=== PATIENT | female | born 1965 | race Caucasian/White ===

== ENCOUNTER 2020-03-21 20:52 | Emergency (ER) | payer OTHER, SELFPAY ==
[2020-03-21] VITALS (8 sets, daily range): BP systolic 107–124; BP diastolic 68–92; PULSE 87–94; RESP 20; TEMP 36.6; O2SAT 93–97
--- NOTE | 2020-03-21 21:06 | W.ED.GENAD ---
Discharge Plan Disposition Patient Disposition: HOME Condition: Stable Discharge Details Chief Complaint: Trauma Clinical Impression: Closed fracture of rib of right side Primary Care Provider: Yolie Merlos ED Provider: David Humphries Home Meds and New Rx's Prescriptions: New oxycodone 5 mg tablet 5 mg PO Q6H PRN (Reason: pain) Qty: 10 RF: 0 Continued albuterol sulfate [ProAir HFA] 90 mcg/actuation HFA aerosol inhaler INHALATION RF: 0 Discharge Instructions Instructions: Rib Fracture (ED) Additional Instructions: you can take 1000mg tylenol and 600mg ibuprofen every 6 hours for pain as needed use the incentive spirometer every hour while awake do not drink alcohol or drive any heavy machinery including cars if you take the oxycodone if you have fevers, severe worsening pain or feel more ill return to the emergency department Stand Alone Forms: Work Release Medical Decision Making 54 yo female comes in after she was riding her horse when the horse slipped and fell and the patient fell off and the horse fell on her right side. She was not wearing a helmet but denies loc. Has mild headache, no neck pain, does have abrasions on the face, eomi without pain. Has pain in right chest in mid axillary line over most ribs without palpable deformity and has tenderness without guarding in rlq and ruq. Ful rom of all extremities. No neck tenderness. Given mechanism and areas of pain will obtain ct head/c spine/facial bones and chest/abd/pelvis. imaging only shows rib fractures on the right, no ptx no tbi no spinal fractures, no intrabdominal pathology. She has no abdominal tenderness now on exam, does have lipase over 1000 but also etoh of 200 though is clinically sober. Suspect lipase elevation is due to the alcohol. Offered admission for pain control which she declined, will d/c with return precautions Differential Diagnosis Differential Diagnosis: rib fracture, liver laceration, abrasions Imaging Data Radiologic Study: Attestation: I personally reviewed and interpreted this imaging study as follows: Imaging: CT Scan Radiologist's impression: ct of head/facial/cspine/abdomen/pelvis/chest 1. Multiple right rib fractures. These involve the 5th through 8th ribs. There is mild displacement of the 6th, 7th, and 8th rib fractures. 2. Minor posterior right lung atelectatic features and minimal pleural effusion. 3. No pneumothorax. 4. Degenerative thoracic spine changes and levoscoliosis. Calcified subpleural small lung nodules bilaterally consistent with old granulomatous disease. Lab Data Lab results reviewed: Yes I reviewed the patient's lab results. HPI General Mode of arrival: ambulatory. Date/Time Provider Initiated Documentation: 03/21/20 20:55. Limitations to Documentation: no limitations. Information obtained by: patient. History of Present Illness 54 year old F presents to the emergency department with the chief complaint of right sided abdomen and chest pain s/p fall, described as moderate, and is localized to the chest. and it has been constant. No relieving factors improve symptom(s), No exacerbating factors reported . Patient did receive the following treatments prior to arrival, none Related Data Home Medications Medication Instructions Recorded Confirmed albuterol sulfate [ProAir HFA] INHALATION 03/21/20 oxycodone 5 mg PO Q6H PRN #10 tab 03/21/20 Previous Rx's Medication Instructions Recorded oxycodone 5 mg PO Q6H PRN #10 tab 03/21/20 Allergies Allergy/AdvReac Type Severity Reaction Status Date / Time codeine AdvReac jittery Unverified 03/21/20 21:05 General Stated Complaint: Trauma MALKA: 2 Review of Systems All systems reviewed & are unremarkable except as noted in HPI and below Constitutional Constitutional: Denies chills, Denies fever(s) and Denies weakness Cardiovascular Cardiovascular: Denies dyspnea Respiratory Respiratory: Denies cough and Denies dyspnea Gastrointestinal Gastrointestinal: Denies nausea and Denies vomiting Musculoskeletal Musculoskeletal: Denies joint swelling Neurologic Neurologic: Denies weakness Psychiatric Psychiatric: Denies depression [facility] Surgical History (Updated 03/21/20 @ 21:05 by Marifer Rodriguez) arm restrucutred. Arthroscopy ankle section x2 Previous back surgery (Acute) Social History Smoking/Tobacco Use Status: Current every day Tobacco Type: cigarettes Alcohol Intake: current Alcohol Intake frequency: 3 or more drinks per day Alcohol type: beer Drug use: Never Substance use type: does not use Do you feel safe at home: Yes Do you feel safe in your relationship?: Yes Exam Const General: other (appears in pain) Orientation: alert HENMT Head: no palpable skull fracture Ears: external ears normal General nose exam: external nose normal Mouth: moist mucous membranes Eyes General: appearance normal, both eyes and all related structures Neck Neck: normal visual inspection Resp Effort & Inspection: normal respiratory effort and able to speak in complete sentences Cardio Rate: regular rate Skin General skin exam: no rashes or lesions noted Neuro General: patient alert and patient oriented x3 Extrem General: normal to inspection Psych Mental Status: mental status grossly normal Course Vital Signs Vital signs: Vital Signs Temperature 36.6 C 03/21/20 21:01 Pulse 87 03/21/20 21:01 Respiratory Rate 20 03/21/20 21:01 Blood Pressure 124/92 H 03/21/20 21:01 Pulse Oximetry 97 03/21/20 21:01 Temperature 36.6 C 03/21/20 21:01 Pulse 87 03/21/20 21:01 Respiratory Rate 20 03/21/20 21:01 Blood Pressure 124/92 H 03/21/20 21:01 Pulse Oximetry 97 03/21/20 21:01 Pain Level 10 03/21/20 21:01
[2020-03-21] MEDS: fentaNYL 100 MCG/2 ML VIAL 50 MCG IVP ×2 (21:23→21:44)
[2020-03-21] MEDS: Normal Saline Flush 10 ML SYR IVP ×2 (21:23→21:44)
[2020-03-21 21:24] LABS: Abs Immature Grans 0.07 k/cumm (0.0-0.09); Absolute Basophil Count 0.06 k/cumm (0.0-0.2); Absolute Eosinophil Count 0.22 k/cumm (0.0-0.7); Absolute Monocyte Count 1.16 k/cumm (0.11-0.7); Basophils % 0.4; Eosinophils % 1.6; HGB 15.4 g/dL (12.0-15.5); Immature Grans % 0.5 %; Lymphocytes % 20.7; Mean Corp. HGB Concentration 34.2 g/dL (32.0-36.0); Mean Corpuscular Hemoglobin 31.9 pg (27.0-33.0); Mean Corpuscular Volume 93.2 fL (80-95); Mean Platelet Volume 9.6 fL (8.0-11.0); Monocytes % 8.3; Neutrophils % 68.5; Platelet Count 309 x1000/uL (130-400); RBC 4.83 m/cumm (4.00-5.20); RBC Distribution Width 12.9 % (11.7-14.6); White Blood Cell Count 14.02 k/cumm (4.4-10.8)
--- NOTE | 2020-03-21 21:24 | DI.CT_ITS ---
EXAM: CT HEAD CERV SPINE FACIAL WO CLINICAL HISTORY: trauma, fell off horse. TECHNIQUE: Imaging Protocol: Axial computed tomography images with coronal and sagittal reformatted images were created and reviewed COMPARISON: MRI CERVICAL THORACIC 20 from 04/12/2017 FINDINGS: CT Head: Ventricles and Extra axial spaces: Normal in size and morphology for the patient's age. Hemorrhage: None. Cerebral parenchyma: Normal. Midline shift: None. Brainstem/Cerebellum: Normal. Calvarium: Normal. Visualized Paranasal sinuses/Mastoids: Mild mucosal thickening in the ethmoid air cells and the sphen oid sinuses. Soft Tissues: Unremarkable. CT Face: Facial Bones: No definite fracture is noted in facial bones. Sinuses and Mastoids: Mild mucosal thickening in the ethmoid air cells and sphenoid sinuses. No flu id levels are present. Globes, extraocular muscles, optic nerves and retrobulbar fat: Normal. Upper aerodigestive tract: Normal. Mandible and bilateral temporomandibular joints: Normal. Soft tissues: Normal. CT Cervical Spine: Bones: No acute fracture or subluxation. Multilevel degenerative changes are seen in the cervical spi ne,particularly at C4-5 and C5-C6. Soft Tissues: Unremarkable. Lung Apices: Clear. IMPRESSION: 1. No acute intracranial process. 2. No acute fracture or subluxation in the cervical spine. 3. No acute facial fracture. RADIATION DOSE DELIVERED: Total DLP DATA REPOSITORY: All CT scans at this facility are submitted to the National Radiology Data Registry (NRDR) Dose Index Registry (DIR) with the [employer] ([employer]). RADIATION OPTIMIZATION: All CT scans at this facility use at least one of these dose optimization te chniques: automated exposure control; mA and/or kV adjustment per patient size (includes targeted exa ms where dose is matched to clinical indication); or iterative reconstruction.
[2020-03-21 21:34] LABS: ALT 38 U/L (14-59); AST 39 U/L (15-37); Albumin 4.1 g/dL (3.4-5.0); Alkaline Phosphatase 83 U/L (46-116); Anion Gap 8.6 mmol/L (3-11); BUN 9 mg/dL (7-18); Bilirubin, Direct 0.11 mg/dL (0.00-0.20); Bilirubin, Total 0.3 mg/dL (0.2-1.0); CO2 27.4 mmol/L (21.0-32.0); CREATININE 0.68 mg/dL (0.55-1.02); Calcium 8.5 mg/dL (8.5-10.1); Chloride 101 mmol/L (98-107); Glucose 97 mg/dL (74-106); Magnesium 2.1 mg/dL (1.8-2.4); Potassium 3.5 mmol/L (3.5-5.1); Sodium 137 mmol/L (136-145); Total Protein 7.8 g/dL (6.4-8.2)
[2020-03-21 21:36] LABS: Lipase 1574 U/L (73-393)
[2020-03-21 21:37] LABS: ETHANOL BLOOD 229.4 mg/dL (<3); INR 0.9 (0.9-1.1); PTT Activated 23.6 sec (21.0-31.4); Prothrombin Time 9.3 sec (9.3-11.0)
--- NOTE | 2020-03-21 21:40 | DI.CT_ITS ---
EXAM: CT CHEST/ABD/PEL W CLINICAL HISTORY: trauma, fell off horse TECHNIQUE: Imaging Protocol: Axial computed tomography images with coronal and sagittal reformatted images were created and reviewed CONTRAST MATERIAL: Intravenous: Omnipaque 350 Contrast volume:100 mL Oral: No COMPARISON: No exams were available for comparison FINDINGS: CHEST: Tracheobronchial tree: Patent where visualized. Mediastinum and Em: No dominant adenopathy or fluid collection. Pulmonary parenchyma: No consolidation or dominant measurable mass. Atelectasis in the lung bases. C alcified granulomas in the lungs. Pleura: Tiny right pleural effusion. No pneumothorax. Heart: The heart is not dilated. No coronary artery calcifications are seen. No pericardial effusion. Aorta: Thoracic aorta non-dilated. Minimal atherosclerosis. Lymph nodes: Within normal limits. Bones:Nondisplaced fracture of the posterior lateral right 5th rib. Minimally displaced fracture of the posterior lateral aspect of the right 6th, 7th and 8th ribs. ABDOMEN: Liver: Fatty infiltration. Cyst in the right lobe of the liver. Portal, Superior Mesenteric, and Splenic Veins: Unremarkable. Gallbladder and Biliary Tract: No radiodense calculus or dilation. Pancreas: Normal density, no abnormal calcifications or inflammatory process. Spleen: Normal. Adrenals: No masses seen. Kidneys: Normal size, contour and axis. No radiodense stones or obstructive uropathy. No masses seen. Abdominal Aorta: Abdominal portion non-dilated. Atherosclerosis. Bowel: No obstruction or bowel wall thickening. No evidence of acute appendicitis. Peritoneal Cavity: No ascites, collection or mesenteric inflammatory response. Lymph Nodes: Within normal limits. Bones: Degenerative changes. Soft Tissues: Unremarkable. PELVIS: Bladder: Symmetric distention, no gross wall thickening. Reproductive Organs: Unremarkable as visualized. Lymph Nodes: Within normal limits. Bones: Degenerative changes. IMPRESSION: 1. Fractures involving the right 5th through 8th ribs. 2. Atelectasis in the right lung with a small right pleural effusion. No pneumothorax. 3. No abdominal or pelvic organ injury. RADIATION DOSE DELIVERED: Total DLP DATA REPOSITORY: All CT scans at this facility are submitted to the National Radiology Data Registry (NRDR) Dose Index Registry (DIR) with the [employer] ([employer]). RADIATION OPTIMIZATION: All CT scans at this facility use at least one of these dose optimization te chniques: automated exposure control; mA and/or kV adjustment per patient size (includes targeted exa ms where dose is matched to clinical indication); or iterative reconstruction.
[2020-03-21] MEDS: Normal Saline - Diluent 50 ML VIAL IV (21:43)
[2020-03-21] MEDS: Omnipaque 350 MG/ML 100 ML BTL IJ (21:43)
--- NOTE | 2020-03-21 22:06 | DI.VRAD_ITS ---
PROCEDURE INFORMATION: Exam: CT Chest With Contrast Exam date and time: 03/21/2020 9:31 PM Age: 54 years old Clinical indication: Injury or trauma; Fall; Blunt; Generalized; Injury date: 03/21/20; Injury details: Fell from horse TECHNIQUE: Imaging protocol: Computed tomography of the chest with intravenous contrast. Radiation optimization: All CT scans at this facility use at least one of these dose optimization techniques: automated exposure control; mA and/or kV adjustment per patient size (includes targeted exams where dose is matched to clinical indication); or iterative reconstruction. Contrast material: [id number]; Contrast volume: 100 ml; Contrast route: IV LAC 18G; COMPARISON: No relevant prior studies available. FINDINGS: Lungs: Posterior right lung mild atelectatic changes. Multiple subpleural calcified nodules in the right lung involving upper and lower lung short. These are most prominent in the upper lung field. The largest nodule is seen on series 8, image 269. These are consistent with old granulomatous nodules. A few small subpleural calcified nodules are also seen in the left upper lobe. Pleural space: Minimal right pleural fluid. No pneumothorax. Heart: Unremarkable. No cardiomegaly. No pericardial effusion. Aorta: Unremarkable. No aortic aneurysm. Lymph nodes: Unremarkable. No enlarged lymph nodes. Bones/joints: Nondisplaced posterolateral right 5th rib fracture. Mildly displaced posterior right 6th, 7th and 8th rib fractures. Soft tissues: Unremarkable. IMPRESSION: 1. Multiple right rib fractures. These involve the 5th through 8th ribs. There is mild displacement of the 6th, 7th, and 8th rib fractures. 2. Minor posterior right lung atelectatic features and minimal pleural effusion. 3. No pneumothorax. 4. Degenerative thoracic spine changes and levoscoliosis. Calcified subpleural small lung nodules bilaterally consistent with old granulomatous disease. PROCEDURE INFORMATION: Exam: CT Abdomen And Pelvis With Contrast Exam date and time: 03/21/2020 9:31 PM Age: 54 years old Clinical indication: Injury or trauma; Fall; Blunt; Generalized; Injury date: 03/21/20; Injury details: Fell from horse TECHNIQUE: Imaging protocol: Computed tomography of the abdomen and pelvis with intravenous contrast. Radiation optimization: All CT scans at this facility use at least one of these dose optimization techniques: automated exposure control; mA and/or kV adjustment per patient size (includes targeted exams where dose is matched to clinical indication); or iterative reconstruction. Contrast material: [id number]; Contrast volume: 100 ml; Contrast route: IV LAC 18G; COMPARISON: No relevant prior studies available. FINDINGS: Liver: Mild fatty liver infiltration. 10 mm inferior right hepatic cyst. Gallbladder and bile ducts: Normal. No calcified stones. No ductal dilation. Pancreas: Normal. No ductal dilation. Spleen: Normal. No splenomegaly. Adrenals: Normal. No mass. Kidneys and ureters: Normal. No hydronephrosis. Stomach and bowel: Unremarkable. No obstruction. No mucosal thickening. Appendix: No evidence of appendicitis. Intraperitoneal space: No free fluid in the abdomen or pelvis. Vasculature: Unremarkable. No abdominal aortic aneurysm. Lymph nodes: Unremarkable. No enlarged lymph nodes. Bladder: Unremarkable as visualized. Reproductive: Unremarkable as visualized. Bones/joints: Lumbar spine degenerative disease. No fracture. No evidence of pelvic fracture. Soft tissues: Unremarkable. IMPRESSION: 1. No visceral injury evident. 2. Lumbar spine degenerative disease and levoscoliosis. 3. Fatty liver changes and minor right hepatic cyst. Dictated and Authenticated by: Manan Singh MD. Ordering:FLY Hernandez MD
--- NOTE | 2020-03-21 22:13 | DI.VRAD_ITS ---
PROCEDURE INFORMATION: Exam: CT Head Without Contrast Exam date and time: 03/21/2020 9:03 PM Age: 54 years old Clinical indication: Injury or trauma; Fall; Initial encounter; Blunt trauma (contusions or hematomas); Injury date: 03/21/20; Injury details: Fell from horse TECHNIQUE: Imaging protocol: Computed tomography of the head without contrast. Radiation optimization: All CT scans at this facility use at least one of these dose optimization techniques: automated exposure control; mA and/or kV adjustment per patient size (includes targeted exams where dose is matched to clinical indication); or iterative reconstruction. COMPARISON: MRI CERVICAL THORACIC 04/12/2017 2:38 PM FINDINGS: Brain: Normal. No hemorrhage. Unremarkable white matter. No mass effect. Ventricles: Normal. No ventriculomegaly. Bones/joints: Unremarkable. No acute fracture. Sinuses: Mild chronic sinus disease of the frontal and ethmoid sinuses. Mastoid air cells: Visualized mastoid air cells are well aerated. Soft tissues: Unremarkable. IMPRESSION: 1. No acute intracranial abnormality. 2. No intracranial hemorrhage. 3. No skull fracture. 4. Minor frontal and ethmoid chronic sinus disease PROCEDURE INFORMATION: Exam: CT Maxillofacial Without Contrast Exam date and time: 03/21/2020 9:03 PM Age: 54 years old Clinical indication: Injury or trauma; Fall; Initial encounter; Blunt trauma (contusions or hematomas); Injury date: 03/21/20; Injury details: Fell from horse TECHNIQUE: Imaging protocol: Computed tomography images of the face without contrast. Radiation optimization: All CT scans at this facility use at least one of these dose optimization techniques: automated exposure control; mA and/or kV adjustment per patient size (includes targeted exams where dose is matched to clinical indication); or iterative reconstruction. COMPARISON: MRI CERVICAL THORACIC 04/12/2017 2:38 PM FINDINGS: Orbits: Orbits are normal. Globes are unremarkable. Bones/joints: No acute fracture. Sinuses: Mild chronic frontal and ethmoid sinus disease. Soft tissues: Unremarkable. IMPRESSION: 1. No acute findings. 2. No facial fracture. PROCEDURE INFORMATION: Exam: CT Cervical Spine Without Contrast Exam date and time: 03/21/2020 9:03 PM Age: 54 years old Clinical indication: Injury or trauma; Fall; Initial encounter; Blunt trauma (contusions or hematomas); Injury date: 03/21/20; Injury details: Fell from horse TECHNIQUE: Imaging protocol: Computed tomography images of the cervical spine without contrast. Radiation optimization: All CT scans at this facility use at least one of these dose optimization techniques: automated exposure control; mA and/or kV adjustment per patient size (includes targeted exams where dose is matched to clinical indication); or iterative reconstruction. COMPARISON: MRI CERVICAL THORACIC 20 04/12/2017 2:38 PM FINDINGS: Vertebrae: No acute fracture. Normal alignment. Discs/Spinal canal/Neural foramina: Posterior broad-based central disc bulge measuring 3 mm at C4-C5. Degenerative disc space narrowing at C5-C6. Posterior osteophytes at C5-C6 projecting approximately 3 mm into the spinal canal.. No significant spinal canal stenosis. Moderate bilateral foraminal stenosis at C5-C6 from osteophytic encroachment. Soft tissues: Unremarkable. Lungs: Lung apices are normal. IMPRESSION: 1. Degenerative cervical spine disease. Severe degenerative disc disease at C5-C6. 2. Facet and uncovertebral joint degenerative disease at multiple levels. 3. No acute fracture or dislocation. Dictated and Authenticated by: Manan Singh MD. Ordering:FLY Hernandez MD
[2020-03-21] MEDS: oxyCODONE 5 MG TAB PO (22:23)
--- NOTE | 2020-03-21 22:32 | NUR.NOTE ---
Nursing Note: faxed referal to primary to follow up 03/21/20
== END 2020-03-21 22:50 | disposition home or self-care (01) ==
LOC: ER 22:35
PROVIDERS: Emergency Provider Emergency Medicine; PCP Nurse Practitioner
DX: S22.41XA Multiple fractures of ribs, right side, initial encounter for closed fracture (principal); V80.010A Animal-rider injured by fall from or being thrown from horse in noncollision accident, initial encounter; W55.19XA Other contact with horse, initial encounter
CPT/HCPCS: 74177; 80053; 80076; 83690; 86850; 86900; 86901; 96374; 96376; 99285; 70450; 70486; 71260; 72125; 80320; 83735; 85025; 85610; 85730; 99284; J3010; J3490

== ENCOUNTER 2020-05-07 01:02 | Outpatient (CLI) | payer OTHER, SELFPAY ==
--- NOTE | 2020-05-07 | DI.RAD_ITS ---
EXAM: XR RIBS RT W PA LAT CHEST INDICATION: RIB DISORDER,M89.9, FELL OFF HORSE, PAIN, ? FX. COMPARISON: No exams were available for comparison TECHNIQUE: 2D digital imaging was performed. FINDINGS: Nondisplaced fractures are seen at the posterior aspects of the right 6th and 7th ribs. There is a m ildly displaced fracture of the posterior aspect of the right 8th rib. The heart and pulmonary vasculature are within normal limits. The lungs are clear. No effusion or p neumothorax is identified. IMPRESSION: Fractures involving the posterior aspects of the right 6th, 7th and 8th ribs. DATA REPOSITORY: RADIATION DOSE DELIVERED:
== END 2020-05-07 01:22 ==
PROVIDERS: PCP Nurse Practitioner; Visit Provider Nurse Practitioner Family
DX: R07.81 Pleurodynia (principal); S22.41XA Multiple fractures of ribs, right side, initial encounter for closed fracture; V80.010A Animal-rider injured by fall from or being thrown from horse in noncollision accident, initial encounter
CPT/HCPCS: 71046; 71100

== ENCOUNTER 2021-04-26 19:27 | Emergency (ER) | payer OTHER, SELFPAY ==
[2021-04-26 19:35] VITALS: BP 135/108; PULSE 88; RESP 16; TEMP 36.5; O2SAT 97
[2021-04-26 20:17] VITALS: BP 150/88
--- NOTE | 2021-04-26 22:33 | ED.GENADUL_ITS ---
Discharge Plan Disposition Patient Disposition: HOME Condition: Good Discharge Details Clinical Impression: Abscess of right leg Primary Care Provider: Yolie Merlos ED Provider: Brenda Schwarz Home Meds and New Rx's Prescriptions: No Action albuterol sulfate [ProAir HFA] 90 mcg/actuation HFA aerosol inhaler 2 puff INHALATION PRN PRNRF: 0 Discharge Instructions Instructions: Abscess (ED) Additional Instructions: You have declined antibiotic, which we have recommended I recommend you have recheck in 48 hours Work removal in 48 hours Warm compresses several times daily Blood pressure recheck by your primary care physician Return earlier should you have new or worsening complaints including spreading redness, fever, worsening pain Medical Decision Making Wick removal in 2 days Declines antibiotics, I discussed that I recommended antibiotics and patient has refused, she is alert, oriented, of decisional capacity She is discharged home in stable condition with stable vitals Recheck in 24 to 48 hours recommended Differential Diagnosis Differential Diagnosis: Cellulitis, lymphangitis, abscess, dermatitis Medical Records Medical records reviewed: Yes I reviewed the patient's medical records. HPI General Mode of arrival: ambulatory . Date/Time Provider Initiated Documentation: 04/26/21 19:32 . Limitations to Documentation: no limitations . Information obtained by: patient . HPI Narrative: This 55-year-old female is otherwise healthy presents with abscess to right thigh. She states she acquired the abscess after shaving. She denies any history of IV drug abuse, fever, chills, or any additional complaints time. She states lesions have become more red color and painful which is why she presents this evening. Denies prior history of similar symptoms in the past. Related Data Home Medications Medication Instructions Recorded Confirmed albuterol sulfate [ProAir HFA] 2 puff INHALATION PRN PRN 03/21/20 04/26/21 Allergies Allergy/AdvReac Type Severity Reaction Status Date / Time codeine AdvReac jittery Unverified 04/26/21 19:41 General Stated Complaint: RashLesion MALKA: 4 Review of Systems Narrative: Review of systems obtained x7 aside from where indicated in HPI REPLACED BY [facility] Medical History (Updated 04/26/21 @ 20:04 by SADIE Valdez) Heavy alcohol consumption Leg weakness, bilateral Lumbar back pain Paresthesia Surgical History (Updated 03/21/20 @ 21:05 by Marifer Rodriguez) arm restrucutred. Arthroscopy ankle section x2 Previous back surgery Social History Smoking/Tobacco Use Status: Current every day Tobacco Type: cigarettes Smoking risk assessment performed?: Yes Alcohol Intake: current Alcohol Intake frequency: 3 or more drinks per day Alcohol type: beer Drug use: Never Substance use type: does not use Do you feel safe at home: Yes Do you feel safe in your relationship?: Yes Exam Const Orientation: alert and oriented x3 Extrem Other: quarter sized lesion to right medial thigh, no surrounding cellulitis, no lymphangitis, no crepitus Course Vital Signs Vital signs: Vital Signs Temperature 36.5 C 04/26/21 19:35 Pulse 88 04/26/21 19:35 Respiratory Rate 16 04/26/21 19:35 Blood Pressure 135/108 H 04/26/21 19:35 Pulse Oximetry 97 04/26/21 19:35 Temperature 36.5 C 04/26/21 19:35 Temperature Source Skin 04/26/21 19:35 Pulse 88 04/26/21 19:35 Respiratory Rate 16 04/26/21 19:35 Respiratory Effort Non-Labored 04/26/21 19:44 Blood Pressure 150/88 H 04/26/21 20:17 Blood Pressure Position Sitting 04/26/21 19:35 Pulse Oximetry 97 04/26/21 19:35 Oxygen Delivery Method Room Air 04/26/21 19:35 Oxygen Flow Rate 0 04/26/21 19:35 Pain Level 0 04/26/21 20:17 Procedures Abscess I/D Site: Lower Extremity Side (if applicable): Right Local Anesthetic: Lidocaine 1% Technique: Incised with #11 Blade Irrigation: Yes Packing used?: Plain Complications: Pain
== END 2021-04-26 20:40 | disposition home or self-care (01) ==
PROVIDERS: Emergency Provider Physician Assistant; PCP Nurse Practitioner
DX: L02.415 Cutaneous abscess of right lower limb (principal)
CPT/HCPCS: 10061

== ENCOUNTER 2021-09-24 01:05 | Outpatient (CLI) | payer OTHER, SELFPAY ==
--- NOTE | 2021-09-24 09:30 | DI.MRI_ITS ---
Exam(s) MR UPPER JOINT RT WO EXAM: MR UPPER JOINT RT WO CLINICAL HISTORY: Work injury,?LABRAL TEAR,?INTERNAL DERANGEMENT,RT SHOULDER PAIN,M25.511 TECHNIQUE: Multiplanar multisequence MRI of the shoulder was performed. COMPARISON: CR XR RIBS RT W PA LAT CHEST from 05/07/2020 CR XR RIBS RT W PA LAT CHEST from 05/07/2020 FINDINGS: MARROW:There is no evidence of fracture, Hill-Sachs deformity, nor ominous osseous lesions. No eviden ce of bony Bankart lesion. ROTATOR CUFF MECHANISM: AC JOINT/ACROMIUM: Minimal degenerative changes. No osteophytes. Mild impingement undersurface of t he acromion is flat. No impingement hook at this level. No calcification evident in the coracoacrom ial ligament.. There is no evidence of os acromiale. Supraspinatus: Intact. No evidence of tear nor muscle atrophy. Infraspinatus: Intact. No evidence of tear nor muscle atrophy. There is a degenerative subarticular cyst in the posterolateral humeral head which is subjacent to the infraspinatus insertion. This cys t measures 5 x 4 millimeter. Teres Minor: Intact. No evidence of tear nor muscle atrophy. Subscapularis/anterior cuff: Intact. No abnormal signal at the level of the multipennate insertional fibers. No significant tear nor atrophy. BICEPS TENDON: Not displaced from its normal position in the intertubercular groove but there is a sm all amount of fluid in the biceps tendon sheath. LABRUM: There is increased signal in the superior labrum at and slightly posterior to the insertional aspect the biceps. Small degenerative subarticular cysts seen in the superior osseous glenoid at th is level. The posterior labrum is intact. Anterior labrum appears intact. Inferior labrum appears intact. There is no evidence of paralabral cyst. Inferior glenohumeral ligament is intact. No evidence of osseous Bankart lesion. GLENOHUMERAL JOINT: There is a small amount of increased fluid in the glenohumeral joint. There is n o loose intra-articular body. Minimal degenerative changes. No osteophytes evident. QUADRILATERAL SPACE: No evidence of mass in the region of the axillary nerve and dorsal circumflex hu meral vessels. Visualized triceps muscle at this level appears unremarkable. IMPRESSION: 1. No evidence of significant rotator cuff tear. No evidence of rotator cuff atrophy. 2. There is some increased signal in the superior labrum at and slightly posterior to the biceps mireya chment level. Possible small SLAP injury but cannot exclude the possibly that this is just related t o the normal sublabral recess. 3. Mild intraosseous signal in the superior osseous glenoid and the inferior osseous glenoid. There does not appear to be a prominent bony Bankart lesion. 4. Small amount of increased fluid in the glenohumeral joint and in the biceps tendon sheath within the intertubercular groove. There is no evidence of biceps tendon tear. There is no loose intra-art icular body evident. DATA REPOSITORY:
== END 2021-09-24 01:25 ==
PROVIDERS: PCP Nurse Practitioner; Visit Provider Nurse Practitioner Family
DX: M25.511 Pain in right shoulder (principal)
CPT/HCPCS: 73221

== ENCOUNTER 2021-11-04 11:40 | Outpatient (CLI) | payer OTHER, SELFPAY ==
--- NOTE | 2021-11-04 11:30 | DI.RAD_ITS ---
Exam(s) XR SHOULDER RT COMPLETE 2+V EXAM: XR SHOULDER RT COMPLETE 2+V CLINICAL HISTORY: right shoulder pain. TECHNIQUE: 2D digital imaging was performed of the right shoulder. Two images were obtained. Axill cassia and AP views were obtained. COMPARISON: No exams were available for comparison FINDINGS: BONES: No acute fracture is present. No bony destructive lesion is seen. JOINTS: No dislocation present. SOFT TISSUE: Normal. IMPRESSION: Unremarkable radiographs of the right shoulder. DATA REPOSITORY: RADIATION DOSE DELIVERED:
== END 2021-11-04 11:41 | disposition home or self-care (01) ==
LOC: DIORS 11:40
PROVIDERS: PCP Nurse Practitioner; Referring Provider Nurse Practitioner; Visit Provider Student in an Organized Health Care Education/Training Program
DX: M25.511 Pain in right shoulder (principal)
CPT/HCPCS: 73030

== ENCOUNTER 2022-05-04 01:18 | Outpatient (CLI) | payer OTHER, SELFPAY ==
[2022-05-04 14:30] LABS: Source Nasal/Nares
[2022-05-04 22:21] LABS: COVID-19 PCR Negative (Negative)
== END 2022-05-04 01:19 | disposition home or self-care (01) ==
LOC: LBO 01:18
PROVIDERS: PCP Nurse Practitioner; Visit Provider Student in an Organized Health Care Education/Training Program
DX: Z20.822 Contact with and (suspected) exposure to COVID-19 (principal); Z01.818 Encounter for other preprocedural examination
CPT/HCPCS: 87635

== ENCOUNTER 2022-05-06 10:56 | Day surgery (SDC) | payer OTHER, SELFPAY ==
[2022-05-06] VITALS (8 sets, daily range): BP systolic 100–161; BP diastolic 61–101; PULSE 62–87; RESP 13–20; TEMP 36.2–37; O2SAT 93–98; BMI 28.5
--- NOTE | 2022-05-06 11:02 | ANES.PREOP_ITS ---
General Info Date of Service Date Performed: 05/06/22 Height: 5 ft 1 in Weight: 68.492 kg Body Mass Index (BMI): 28.5 Surgical Procedure: Operation Date: 05/06/22 13:10 Proposed Procedure Side Surgeon p Shoulder Arthroscopy w/Extensive Debridement,Biceps Tenodesis, Subacromial Decompression Right Truong Hewitt MD Meds Allergies and Home Medications Allergies Allergy/AdvReac Type Severity Reaction Status Date / Time codeine AdvReac jittery Verified 05/06/22 11:19 Home Medication Medication Instructions Recorded aspirin 81 mg tablet,delayed 81 mg PO DAILY Prevent blood clot 05/06/22 release 14 days #14 tabs naproxen 250 mg tablet 250 - 500 mg PO BID PRN #20 tabs 05/06/22 oxycodone 5 mg tablet 5 - 10 mg PO Q4H PRN moderate to 05/06/22 severe pain #12 tabs Current Visit Medications: Current Medications Generic Name Dose Route Start Last Admin Trade Name Freq PRN Reason Stop Dose Admin Ringer's Solution 1,000 mls @ 100 mls/hr 05/06/22 06:00 IV 06/04/22 23:59 INFUSION ARIANNA Cefazolin Sodium/Dextrose 2 gm in 50 mls @ 100 mls/hr 05/06/22 06:00 Ancef Duplex IVPB PREOP ARIANNA IV Miscellaneous Supplies 1 each 05/06/22 06:00 Iv Access IV 06/04/22 23:59 DIRECTED ARIANNA Sodium Chloride 0 ml 05/06/22 06:00 Normal Saline Flush 10 Ml Syr IV 06/04/22 23:59 PRN PRN Sodium Chloride 0 ml 05/06/22 06:00 Normal Saline 10 Ml Vial IJ 06/04/22 23:59 DIRECTED PRN Sterile Water 0 ml 05/06/22 06:00 Water,Injection,Sterile 10 Ml Vial IJ 06/04/22 23:59 DIRECTED PRN PFSH Active Problems Active Problems: Problem Status Onset Code SLAP lesion of right shoulder 08/06/21 S43.431A Bursitis of right shoulder M75.51 Medical History Medical History Abscess of right leg Leg weakness, bilateral Lumbar back pain Medial epicondylitis, left elbow Paresthesia Surgical History Surgical History (Updated 06/09/22 @ 11:12 by Ankita Thomas) arm restrucutred. Per pt. 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 (L). Is able to have IV's and BP on on that arm. IV starts are fine to be started on left arm, more distally from elbow. Arthroscopy ankle section x2 Previous back surgery Per pt. 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 Tobacco Smoking/Tobacco Use Status: Current-Occasional Tobacco Type: cigarettes Alcohol Alcohol Intake: current Alcohol intake frequency: 3 or more drinks per day Alc ohol type: beer Substance Use Substance use: Never Substance use type: does not use Vital Signs and Lab Results Lab Results Blood Type / Crossmatch: No Data to Display Complete Blood Count: No Data to Display Complete Metabolic Panel: No Data to Display Liver Function Panel: No Data to Display Coagulation Panel: No Data to Display Cardiac Panel: No Data to Display Arterial Blood Gas: No Data to Display Venous Blood Gas: No Data to Display Pancreas Panel: No Data to Display Thyroid Panel: No Data to Display Infectious Disease: Coronavirus (COVID-19)(PCR) Negative (Negative) 05/04/22 09:00 Coronavirus 2019 Source Nasal/Nares 05/04/22 09:00 Blood Cultures: No Data to Display Toxicology Panel: No Data to Display Anesthesia Assessment and Plan Anesthesia History Personal History: No History of Anesthesia Complications Family History: No Family History of Anesthesia Complications Exercise Tolerance Exercise Tolerance: Metabolic Equivalents>4 Pertinent Negatives Pertinent Negatives: No Symptoms of GERD, No Major Cardiovascular Symptoms or Complaints, No Major Pulmonary Symptoms or Complaints and No History of CVA/TIA Cardiac & Pulmonary Exam Cardiac Exam: Normal S1/S2 Heart Sounds Pulmonary Exam: Clear Bilateral Breath Sounds Implantable Cardiac Device Does patient have a Pacemaker or an ICD?: No Airway Exam Known Difficult Airway: No Mallampati Class: 1 Mouth Opening: Normal (> 3cm) Thyromental Distance: Greater than 3 cm Neck Range of Motion: Full ROM Neck Circumference: Normal Teeth Condition: Removable Dentures/Plates Upper (3 natural teeth upper, most missing on lower. None loose or chipped per patient. ) ASA Classification ASA Score: ASA 2 Emergency Case?: No NPO Status NPO Status: NPO Clears >2 hours, Solids >8 hours Anesthesia Plan Resuscitation Status: Full Code Anesthesia Technique: General Anesthesia Airway Planned: Endotracheal Tube Pain Management: Surgeon and patient request nerve block Monitors Used: Standard Monitors
[2022-05-06] MEDS: Lactated Ringers 1,000 ML 100 ML IV (11:51)
[2022-05-06] MEDS: ceFAZolin 2 GM/50 ML BAG IVPB (12:24)
--- NOTE | 2022-05-06 13:04 | W.ANESNERVE ---
Nerve Block Single Injection Procedure Date and Time Date Performed: 05/06/22 Procedure Start: 12:05 Location Where Procedure Performed Procedure Location: Day Surgery Unit Reason Performed: Postoperative Analgesia Requesting Provider: Truong Hewitt Timeout Performed Timeout Performed: Yes Monitoring Used ECG, Blood Pressure and SpO2 Sterility Sterility: Hand Hygiene, Surgical Cap, Surgical Mask, Sterile Gloves and Chlorhexidine Sedation Given During Procedure Sedation Given (Indicate Dose Given): Versed IV Dose:: 2 mg Patient Mental Status Patient Mental Status: Sedate with meaningful communication Nerve Block 1st Nerve Block: Laterality: Right Block Type: Interscalene Needle / Catheter Used: 100mm SonoPlex II Local Anesthetic Bolus (Indicate Dose Given): Lidocaine used for local infiltration of skin, Injected in 3-5ml increments after negative blood aspiration and Bupivacaine 0.5% Dose:: 20 ml Additives (Indicate Dose Given): Precedex Dose:: 70 mcg Ultrasound: Sterile probe cover and gel used Ultrasound Image Saved?: Yes Nerve Stimulator: Not Used Paresthesia: Right Paresthesia Duration: Transient (Repositioned needle and paresthesia resolved. ) Post Procedure Pain score (0-10): 0 Procedure Tolerated: No Complications Procedure Outcome: Successful Performed By: Khanh Bailey
[2022-05-06] MEDS: EPINEPHrine 30 MG/30 ML VIAL (13:13)
--- NOTE | 2022-05-06 13:40 | W.PM.DSUDISC ---
Discharge Plan Disposition Patient Disposition: HOME Condition: Stable Discharge Details Reason For Visit: Right shoulder surgery Attending Provider: Truong Hewitt Primary Care Provider: Yolie Merlos Home Meds and New Rx's Prescriptions: New aspirin 81 mg tablet,delayed release (DR/EC) 81 mg PO DAILY 14 Days Qty: 14 0RF naproxen 250 mg tablet 250 - 500 mg PO BID PRNQty: 20 0RF Rx Instructions: take with a meal oxycodone 5 mg tablet 5 - 10 mg PO Q4H MDD 30 mg PRN (Reason: moderate to severe pain) Qty: 12 0RF Discharge Instructions Additional Instructions: Surgery: Right shoulder arthroscopy with biceps tenodesis, extensive debridement, and subacromial decompression. Activity: You should gradually increase range of motion motion and use of your shoulder. Please perform daily stretching exercises. You may use your shoulder for all regular activities. Avoid heavy lifting, reaching overhead, and lifting away from body for approximately 6 to 8 weeks. You may use the sling whenever you are out of the house for a few weeks. At home it is best to remove the sling and rest the arm on a pillow at your side or support the operative side with your other hand. A physical therapy prescription will be sent electronically to start in about 2 weeks. Prescriptions: Aspirin 81 mg take 1 daily to prevent a blood clot for 2 weeks Naproxen 250 mg take 1-2 every 12 hours with a meal as needed for moderate pain Oxycodone 5 mg take 1-2 every 4-6 hours as needed for severe pain You may use [id number] Tylenol (acetaminophen) as needed for mild pain. These pain medications may be taken all at once or in different combinations as needed. Also, recommend Colace (docusate) as a stool softener as surgery and pain medicine cause constipation. You may try avmy-[id number]-[id number] diphenhydramine (Benadryl) 25-50 mg nightly as a sleep aid Dressings: Remove shoulder bandage after 3 days. Leave the sticky Steri-Strips in place until they fall off or remove them after you shower. Cover the incisions with Band-Aids or leave them open to air. You may shower after 5 days. Follow-up: 10-[address] Hewitt You may take off the leg compression stockings this evening at home. You may also leave them on a few days longer if you have a history of leg swelling or edema. Let us know right away if you develop any redness, drainage, fevers, chest pain, or trouble breathing. Do not drink alcohol or drive for at least 24 hours after anesthesia. Please call the office during business hours with any questions or concerns. Discharge Orders Discharge Orders: Discharge Order (Routine); Ordered 05/06/22 Ordered By: Truong Hewitt DS: Diagnosis Discharge Diagnosis (1) SLAP lesion of right shoulder: Status: Acute (2) Bursitis of right shoulder: Status: Acute
--- NOTE | 2022-05-06 13:47 | ROE_ITS ---
Operative Note Operative Note DATE OF PROCEDURE: 05/06/22 PRE-OP DIAGNOSIS: Right: 1. SLAP tear 2. LHB tendinopathy 3. Bursitis POST-OP DIAGNOSIS: same PROCEDURE: Right: 1. Arthroscopic biceps tenodesis, CPT# 07413. This involved arthroscopically suturing and reattaching the long head of the biceps tendon to the proximal humerus at the superior margin of the bicipital groove with a screw at the correct tension. 2. Extensive debridement, CPT# 14153. This involved using arthroscopic hand instruments, power instruments, and radiofrequency instruments to release the long head of the biceps tendon and debride areas of labral tearing, synovitis, and chondromalacia about the central glenoid working within the glenohumeral joint anteriorly, superiorly and posteriorly. Multiple small cartilage loose bodies were also removed. 3. Subacromial decompression with partial acromioplasty, CPT# 46560. This involved using arthroscopic power instruments and a radiofrequency wand to complete a bursectomy and remove bone spurs on the undersurface of the acromion. The assistant professor of business was medically required in order to help assist in techniques above, which require positioning the arm, holding the arthroscope, and manipulating multiple instruments and sutures at the same time. This cannot be done without the help of an experienced assistant professor of business. SURGEON: Truong Hewitt BOTTLE CAPPER: Jonnathan Rojas ANESTHESIA TYPE: General LMA/ETT and Primary Nerve Block Refer to Anesthesia Record ESTIMATED BLOOD LOSS: 10 PATHOLOGY: none sent COMPLICATIONS: None Patient was transported to: PACU Patient's condition: stable Implants: Arthrex: 4.75mm SwiveLocks x 1 Indications: The patient was diagnosed with the above conditions and appropriately indicated for surgical intervention. Please see complete medical record for details. Findings: Exam under anesthesia: Full range of motion, no instability Glenohumeral joint: Moderate anterior synovitis. Moderate anterior labral fraying. Intact subscapularis. Moderate long head biceps injection. SLAP tear with instability of the biceps anchor. Central glenoid high-grade cartilage thinning chondromalacia. Intact humeral head cartilage. Intact articular rotator cuff. Multiple small cartilaginous loose bodies from probable glenoid donor site. Subacromial space: Moderate bursitis. No bursal rotator cuff tear. No significant subacromial bone spur. Procedure Description: In the operating room, general anesthesia was induced. Bilateral shoulders were examined. The patient was positioned in the beachchair position. All bony prominences were well-padded. Preoperative antibiotics were administered. The shoulder was prepped and draped in the usual sterile fashion. The correct patient, procedure, and side of the procedure were all verified prior to incision. Starting through the posterior portal a standard complete diagnostic arthroscopy was performed of the glenohumeral joint including inspection of the long head of the biceps, anterior and superior labrum, subscapularis tendon, supraspinatus and infraspinatus tendons, and axillary recess. The glenoid and humeral head cartilage as well as the posterior labrum were inspected from an anterior viewing portal. Significant findings and interventions noted above. A rigid cannula was inserted anteriorly. The probe was used to document areas of injury. Multiple small cartilage loose bodies were removed with the [facility] anical shaver. Attention was turned to the intra-articular biceps segment. An all-arthroscopic suprapectoral biceps tenodesis was performed through an anterior portal using a Loop N Tack method with a SutureTape FiberLink cinched around and through the tendon. The biceps was tenotomized from the labrum and fixated with a suture anchor at the superior margin of the bicipital groove at the appropriate tension. A #2 FiberWire safety stitch was then passed around the biceps tendon at the tenodesis site and additionally secured with an [facility] arthroscopic knot. The biceps repair was in good position had excellent strength. The remainder of the biceps anchor and superior labrum was resected and debrided only as much as necessary to achieve a stable margin and reduce mechanical symptoms. Starting through the posterior portal, the arthroscope was directed into the subacromial space. The anterior portal was redirected into the subacromial space. A lateral portal was omitted. A combination of power instruments and a radiofrequency ablator were used to debride bursitis anteriorly, posteriorly, and laterally as well as expose and smooth minimal bone spurring on the undersurface of the acromion. The coracoacromial ligament was partially released. The bursectomy was completed viewing laterally and working from posteriorly and the rotator cuff was thoroughly inspected with findings noted above. The shoulder was drained of arthroscopic fluid. All portal sites were copiously irrigated. These incisions were closed using 3-0 Monocryl in a buried fashion and then covered with Mastisol, Steri-Strips, Xeroform, dry gauze, and ABDs. The dressings were covered and secured with Medipore tape. The operative extremity was placed into a sling for immobilization. The patient awoke from anesthesia without complication and was transferred to the recovery room in a stable condition.
--- NOTE | 2022-05-06 15:03 | W.ANESPOSTOP ---
Postoperative Evaluation Date, Time and Location Date Performed: 05/06/22 Time Performed: 15:03 Patient Location: Day Surgery Unit Vital Signs Most Recent Imported Vital Signs: Most Recent Vital Signs Temp Pulse Resp BP Pulse Ox 36.2 C L 64 20 122/86 93 05/06/22 14:45 05/06/22 14:45 05/06/22 14:45 05/06/22 14:45 05/06/22 14:45 Pain Score Most Recent Pain Score: Most Recent Pain Score Pain Level 0 05/06/22 14:45 Assessment Mental Status: Awake (Alert & Oriented to Patient Baseline) Airway and Respiratory Function: Patent airway with normal (patient baseline) respiratory exam Cardiovascular Function: Hemodynamically Stable Hydration Status: Adequately Hydrated Nausea & Vomiting: No Nausea or Vomiting Pain: Pt. Denies Any Pain Peripheral Nerve Block: Regional nerve block not resolved at time of post operative discharge
== END 2022-05-06 17:04 | disposition home or self-care (01) ==
PROVIDERS: PCP Nurse Practitioner; Visit Provider Student in an Organized Health Care Education/Training Program
PROC: (CPT 29805; principal; 2022-05-06 13:00)
DX: S43.431A Superior glenoid labrum lesion of right shoulder, initial encounter (principal); M75.51 Bursitis of right shoulder; F17.210 Nicotine dependence, cigarettes, uncomplicated; M75.21 Bicipital tendinitis, right shoulder; X58.XXXA Exposure to other specified factors, initial encounter
CPT/HCPCS: 29828; 29823; 29826; 76942; J0690; J1100; J2250; J2370; J2405

== ENCOUNTER → 2022-09-16 02:42 | Outpatient (CLI) | payer OTHER, SELFPAY ==
--- NOTE | 2022-09-16 06:45 | DI.MRI_ITS ---
Exam(s) MR UPPER JOINT RT WO CLINICAL HISTORY: Persistent pain,slap lesion, bursitis,s43.431a,m75.51,m94.211. TECHNIQUE: Multiplanar multisequence MRI was performed. COMPARISON: None FINDINGS: MR examination of the shoulder was performed according to the usual protocol. There is a small effusion of the glenohumeral joint. Trace fluid in the subacromial subdeltoid bursa . Bones and labrum: Glenohumeral joint and acromioclavicular joint both show mild osteophyte formation. Mild narrowing of the acromial outlet , subchondral cysts of the glenoid again noted as seen on [place] or MRI of August 2021. There is a new suture anchor in place in the anterior greater tuberosity. As noted on prior examination, there is abnormal signal in the superior labrum suspicious for SLAP te ar.generalized effacement of the labrum is noted.. Rotator cuff: There is mildly abnormal signal in the distal supraspinatus tendon in its anterior asp ect period abnormal signal also seen in rotator interval region period otherwise,, subscapularis, inf raspinatus, and teres minor muscles and tendons show normal signal and no evidence of a tear. . Biceps tendon and anchor: Biceps tendon is present in the bicipital groove, however more proximal por tions of the tendon are are nonvisualized. Please correlate regarding prior surgical procedure with the suture anchor lying adjacent to bicipital groove superiorly.. IMPRESSION: Mild degenerative changes, probable SLAP tear superiorly as previously noted, suturing anchor in plac e may be associated with biceps tendon, please correlate with surgical history. Biceps tendon not vi sualized in its proximal course.. DATA REPOSITORY:
== END ==
PROVIDERS: Visit Provider Student in an Organized Health Care Education/Training Program
DX: M75.51 Bursitis of right shoulder (principal); M94.211 Chondromalacia, right shoulder; M19.011 Primary osteoarthritis, right shoulder
CPT/HCPCS: 73221

== ENCOUNTER 2022-09-23 04:03 | Outpatient (CLI) | payer OTHER, SELFPAY ==
[2022-09-23 14:53] LABS: Abs Immature Grans 0.04 10^3/uL (0.0-0.06); Absolute Basophil Count 0.07 10^3/uL (0.0-0.2); Absolute Eosinophil Count 0.11 10^3/uL (0.0-0.7); Absolute Lymphocyte Count 2.12 10^3/uL (1.2-3.4); Absolute Monocyte Count 0.72 10^3/uL (0.1-0.8); Absolute Neutrophil Count 5.18 10^3/uL (1.2-6.7); Basophils % 0.8; Eosinophils % 1.3; HCT 47.8 % (36.0-46.0); HGB 15.9 g/dL (11.2-15.7); Immature Grans % 0.5; Lymphocytes % 25.7; MCH 31.1 pg (27.0-33.0); MCHC 33.3 % (32.0-36.0); MCV 94 fL (80-95); MPV 9.9 fL (8.0-11.0); Monocytes % 8.7; Platelet Count 231 10^3/uL (130-400); RBC 5.11 10^6/uL (3.93-5.22); RDW 11.8 % (11.7-14.6); WBC 8.24 10^3/uL (4.4-10.8)
[2022-09-23 14:58] LABS: ESR 3 mm/hr (0-30)
[2022-09-23 15:22] LABS: C-Reactive Protein 0.11 mg/dL (0.0-0.3)
== END 2022-09-23 04:04 | disposition home or self-care (01) ==
LOC: LBO 04:04
PROVIDERS: Visit Provider Student in an Organized Health Care Education/Training Program
DX: M75.51 Bursitis of right shoulder (principal); M94.211 Chondromalacia, right shoulder
CPT/HCPCS: 36415; 85652; 85025; 86140

== ENCOUNTER 2023-02-10 01:08 | Outpatient (CLI) | payer OTHER, SELFPAY ==
--- NOTE | 2023-02-10 07:45 | DI.RAD_ITS ---
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 TECHNIQUE: Fluoroscopy was provided for the referring physician for guidance with performing right s houlder injection procedure. COMPARISON: No exams were available for comparison FINDINGS: Please see procedure note for details. Fluoro time: 4 seconds RADIATION DOSE DELIVERED: Kar=0.18 mGy
--- NOTE | 2023-02-10 15:11 | W.PROCNOTE ---
Date of service: 02/10/23 Time of Service: 15:11 Procedure Note Date of procedure: 02/10/23 Procedure: Right Shoulder Injection Surgeon/Proceduralist/Physician: Bj Trevino Procedure Diagnosis: Right Shoulder Pain, Chondromalacia Procedure Indications: Tara has had persistent pain of the RIGHT shoulder. Noninvasive measures have been tried. To serve as both diagnostic and therapeutic, an injection under fluoroscopy was recommended. I had discussed the risks of the procedure and the patient elected to proceed. Procedure Description: Tara was greeted in the flouroscopy room. The correct side was identified and the consent was reviewed with the patient and signed. The patient was then placed in the supine position on the fluoroscopy table. The RIGHT shoulder was then prepped with Chloraprep. The anterior injection starting point was identiifed by bony landmarks and fluoroscopy. The skin and soft tissue in the tract of the injection was anesthetized with 1% Lidocaine. A spinal needle was then inserted deep into the shoulder joint at the level of the recess between the glenoid and superior humeral head. A small amount of Omnipaque solution was injected to confirm intraarticular placement. Once confirmed, the shoulder was injected with 5cc of 0.5% Bupivicaine and 80mg of Depo-Medrol. A bandaid was placed on the injection site. The patient tolerated the procedure well and noted improvement in pre-injection pain interestingly, she reported pain down into the radial aspect of the distal forearm and the thumb, which she has complained about the past that she reports..
[2023-02-10] MEDS: methylPREDNISolone ACETATE 80 MG/ML VIAL IM (15:25)
[2023-02-10] MEDS: Bupivacaine 0.5% Pres-Free 10 ML VIAL 5 ML IJ (15:26)
== END 2023-02-10 01:28 ==
PROVIDERS: Visit Provider Student in an Organized Health Care Education/Training Program
DX: M94.211 Chondromalacia, right shoulder (principal)
CPT/HCPCS: 20610; 77002; J1040